=== PATIENT | female | born 1960 | race Caucasian/White ===

== ENCOUNTER 2021-07-18 17:21 | Emergency (ER) | payer MEDICARE, SELFPAY ==
[2021-07-18 17:34] VITALS: BP 125/73; PULSE 75; RESP 18; TEMP 36.4; O2SAT 95; BMI 33.3
--- NOTE | 2021-07-18 18:22 | ED_ITS ---
HPI - General Adult General: Chief complaint: General Medical Stated complaint: poor appetite; confusion Time Seen by Provider: 07/18/21 18:21 Source: patient and family Mode of arrival: EMS Limitations: altered mental status History of Present Illness: This patient was transported to the emergency depa rtment from a local assisted living facility. History was obtained from facility records, the patient as well as Mrs. Campos who is her DURABLE [employer]OWER [employer] via telephone. History is that the patient became positive for COVID- 19 approximately 4 days ago. Since that time the report is that she has been confused, decreased appetite decreased intake. There is no history of trauma, low blood sugars etc. She is unable to share any specifics about her past medical history but denies any complaints at this time. Allegedly she has a history of hypertension. She has never been at this facility and there are no records from our electronic medical record. Associated symptoms: Reports confusion, decreased appetite and vomiting; Deny chest pain, dyspnea, headache(s), rash or palpitations Review of Systems Const: Denies: fever(s), chills or body aches Eyes: Denies: change in vision ENMT: Denies: throat pain or odynophagia Card: Denies: chest pain or palpitations Resp: Denies: dyspnea, productive cough or non-productive cough GI: Reports: vomiting; Denies: abdominal pain, hematemesis, diarrhea or hematochezia : Denies: flank pain, difficulty voiding or dysuria Musc: Denies: neck pain, back pain, extremity pain or extremity swelling Skin/Breast: Denies: rash Neuro: Reports: confusion; Denies: headache(s), numbness in extremities, weakness in extremities or Slurred speech present Charli/Lymph: Denies: easy bruising or easy bleeding Physical Exam Narrative: EXAM NARRATIVE: The patient is alert and interactive is pleasantly confused and unable to answer any detailed questions about current events, her past medical history etc. She is able to tell me that she was born in this area moved to [place] but cannot recall the city that she lived in [place]. She is able to identify her friend Mrs. Campos who is her DURABLE [employer]OWER [employer]. She is not aware of the current date or time of the year. Const: COMMON NORMALS: no acute distress, average body habitus, no limitations, healthy appearing and alert GENERAL APPEARANCE: cooperative and well developed ORIENTATION/CONSCIOUSNESS: Yes oriented to person and Yes oriented to place HENMT: COMMON NORMALS: normocephalic, atraumatic, Normal nasal mucous membranes and turbinates present, moist oral mucous membranes and oropharynx normal HEAD & SCALP: normocephalic and atraumatic; no scalp tenderness and no Temporal artery tenderness present FACE & SINUS: normal facial exam NOSE: Normal nasal mucous membranes and turbinates present Eye: COMMON NORMALS: Equal, round and reactive pupils present, EOMs intact bilaterally and conjunctivae normal CONJUNCTIVA: Yes conjunctivae normal PUPIL: Yes Equal, round and reactive pupils present Neck/C-Spine: COMMON NORMALS: full ROM, no lymphadenopathy, supple, no meningeal signs, Thyroid normal and No carotid bruits THYROID: Thyroid normal Lymph: LYMPHATIC: no lymphadenopathy noted Chest: COMMONS NORMALS: normal inspection of the chest and normal palpation of entire chest wall Resp: COMMON NORMALS: normal respiratory effort, No retractions, No use of accessory muscles and clear to auscultation bilaterally AUSCULTATION: clear to auscultation bilaterally Cardio: COMMON NORMALS: regular rate, regular rhythm, No murmurs present (Cardio), No rub (Cardio) and Peripheral pulses 2+ throughout RATE: regular rate RHYTHM: regular rhythm PERIPHERAL PULSES: Peripheral pulses 2+ throughout GI: COMMON NORMALS: Normal to inspection, nondistended, normoactive bowel sounds present, Soft to palpation, non-tender and No hepatosplenomegaly present PALPATION: Yes Soft to palpation and Yes No hepatosplenomegaly present : COMMON NORMALS: Yes no CVA tenderness BLADDER/KIDNEY EXAM: Yes no CVA tenderness Back/Pelvis: COMMON NORMALS: no CVA tenderness, thoracic and lumbar spine normal to inspection, no thoracic nor lumbar tenderness and thoraco-lumbar ROM normal Extremity: COMMON NORMALS: normal to inspection, full ROM, capillary refill normal and no calf tenderness Neuro: COMMON NORMALS: moves all extremities, no focal motor deficits, no sensory deficits noted and deep tendon reflexes 2+ bilaterally SENSORIUM/ORIENTATION: Yes alert, Yes oriented to person and Yes oriented to place MENINGEAL SIGNS: Yes no meningeal signs CRANIAL NERVES: Yes CN normal except as noted Psych: COMMON NORMALS: cooperative and speech normal SPEECH: Yes normal speech MEMORY/COGNITION: Yes memory grossly impaired Skin: COMMON NORMALS: no rashes or lesions noted, turgor normal, no jaundice and no petechiae GENERAL SKIN EXAM: no rashes or lesions noted and turgor normal Course Reevaluation(s): Reevaluation #1: The patient remained alert and cooperative. He was drinking fluids without difficulty. No other new or focal findings on reevaluation. Time: 22:08 Consultations: Consultation #1: I reviewed reviewed all her current findings with the hospitalist(Dr Rai) without any significant findings of concern he does not feel that or admission is supportive or warranted at this time. He recommends discharging her back to her normal care facility with close follow-up and return precautions. She has been given 2 g of Rocephin and she will have cultures pending. Time: 22:19 Vital Signs: Vital signs: Vital Signs Temperature 97.5 F L 07/18/21 17:34 Pulse Rate 76 07/18/21 20:02 Respiratory Rate 16 07/18/21 20:02 Blood Pressure 148/91 07/18/21 20:02 Pulse Oximetry 95 07/18/21 20:02 MDM - General Adult Medical Decision Making Patient comes to the emergency department with a history of mild confusion and decreased intake. She had an extensive evaluation at this facility to include c omplete clinical examination which showed mild confusion but no focal findings to suggest neurologic deficit etc. Her radiographic and other ancillary studies are essentially unremarkable other than she has a urinalysis which does show some mild findings suggestive of possible UTI. Consultation with hospitalist service was undertaken and they reviewed her current findings and did not find a compelling reason to keep her in the hospital given that she was able to return back to a monitored setting. Again no evidence to suggest acute NEGATIVE CUTTER infection, stroke, pneumonia or other concerning findings at this time. She does have a history of being COVID-positive over the past few days but is not hypoxic, etc. The plan will be to return her back to the long-term care facility for continued monitoring and return to this facility immediately should she not improve or have other concerning findings. Medical Records No old records this facility Lab Data I reviewed the patient's lab results. : 07/18/21 18:45 07/18/21 18:45 Radiology Impressions Chest X-Ray 07/18/21 18:48 IMPRESSION: No acute findings. Head CT 07/18/21 18:48 IMPRESSION: No acute intracranial abnormality. Laboratory Results WBC 4.2 10^3/uL (4.0-10.0) 07/18/21 18:45 RBC 4.79 10^6/uL (4.1-5.3) 07/18/21 18:45 Hgb 14.3 g/dL (11.5-15.3) 07/18/21 18:45 Hct 40.4 % (37.0-47.0) 07/18/21 18:45 MCV 84.3 fl (81-99) 07/18/21 18:45 MCH 29.9 pg (28.0-34.0) 07/18/21 18:45 MCHC 35.4 g/dL (30.0-36.0) 07/18/21 18:45 RDW 13.2 % (12.1-15.1) 07/18/21 18:45 Plt Count 222 10^3/cmm (130-400) 07/18/21 18:45 MPV 9.6 fL (7.4-10.4) 07/18/21 18:45 Neut % (Auto) 39.2 % 07/18/21 18:45 Lymph % (Auto) 47.3 % 07/18/21 18:45 Jennings % (Auto) 12.1 % 07/18/21 18:45 Eos % (Auto) 0.5 % 07/18/21 18:45 Baso % (Auto) 0.7 % 07/18/21 18:45 Neut # (Auto) 1.66 10^3/uL (1.8-7.7) L 07/18/21 18:45 Lymph # (Auto) 2.0 10^3/uL (0.8-4.8) 07/18/21 18:45 Jennings # (Auto) 0.5 10^3/uL (0.2-0.9) 07/18/21 18:45 Eos # (Auto) 0.0 10^3/uL (0.0-0.8) 07/18/21 18:45 Baso # (Auto) 0.0 10^3/uL (0.0-0.1) 07/18/21 18:45 Nucleated RBC % (auto) 0 % 07/18/21 18:45 Nucleated RBCs # 0.0 /100WBC 07/18/21 18:45 Specimen Type Arterial 07/18/21 19:52 Sample Site Radial, left 07/18/21 19:52 ABG pH 7.45 (7.35-7.45) 07/18/21 19:52 ABG pCO2 35.1 mmHg (35-45) 07/18/21 19:52 ABG pO2 67.6 mmHg (80.0-100.0) L 07/18/21 19:52 ABG HCO3 24.6 mmol/L (22-26) 07/18/21 19:52 ABG O2 Saturation 94.8 07/18/21 19:52 ABG Base Excess 1.0 mmol/L (-2.0-2.0) 07/18/21 19:52 Jose Test Pos 07/18/21 19:52 A-a O2 Gradient 4.9 mmHg (5-10) L 07/18/21 19:52 Hematocrit 43.7 % (37-47) 07/18/21 19:52 Hgb O2 Saturation 93.6 % (95-100) L 07/18/21 19:52 Carboxyhemoglobin 0.5 %THgb (0.4-20.1) 07/18/21 19:52 Methemoglobin 0.8 % (0.4-1.5) 07/18/21 19:52 Total Hemoglobin 14.2 g/dL (12-16) 07/18/21 19:52 Sodium 141.0 mmol/L (131-143) 07/18/21 19:52 Potassium 3.5 mmol/L (3.5-5.0) 07/18/21 19:52 Glucose 124.0 mg/dL (70-115) H 07/18/21 19:52 Ionized Calcium 1.1 mmol/L (1.1-1.4) 07/18/21 19:52 O2 Delivery Device Room air 07/18/21 19:52 Forms Examiner ID Buttr 07/18/21 19:52 Sodium 137 mmol/L (136-145) 07/18/21 18:45 Potassium 3.7 mmol/L (3.5-5.1) 07/18/21 18:45 Chloride 100 mmol/L (98-107) 07/18/21 18:45 Carbon Dioxide 23 mmol/L (22-29) 07/18/21 18:45 Anion Gap 17.7 (5-19) 07/18/21 18:45 BUN 12 mg/dL (8-23) 07/18/21 18:45 Creatinine 0.5 mg/dL (0.5-0.9) 07/18/21 18:45 GFR Calculation 125.0 mL/min (90-130) 07/18/21 18:45 Glucose 129 mg/dL (65-115) H 07/18/21 18:45 Calculated Osmolality 285 mOsm/kg (285-295) 07/18/21 18:45 Lactate 1.2 mmol/L (0.5-2.2) 07/18/21 18:45 Calcium 9.3 mg/dL (8.5-10.5) 07/18/21 18:45 Total Bilirubin 0.6 mg/dL (0.15-1.2) 07/18/21 18:45 AST 29 U/L (0-32) 07/18/21 18:45 ALT 28 U/L (0-33) 07/18/21 18:45 Alkaline Phosphatase 55 IU/L (35-105) 07/18/21 18:45 Total Protein 7.3 g/dL (6.6-8.7) 07/18/21 18:45 Albumin 4.7 g/dL (3.5-5.2) 07/18/21 18:45 Globulin 2.6 g/dL (1.3-4.6) 07/18/21 18:45 TSH 2.46 uIU/mL (0.27-4.20) 07/18/21 18:45 Urine Color Yellow (Yellow) 07/18/21 20:55 Urine Appearance Clear (CLEAR) 07/18/21 20:55 Urine pH 5 (5-7) 07/18/21 20:55 Ur Specific [place] 1.025 (1.005-1.030) 07/18/21 20:55 Urine Protein Neg (Negative) 07/18/21 20:55 Urine Glucose (UA) Norm (Normal) 07/18/21 20:55 Urine Ketones 2+ (Negative) H 07/18/21 20:55 Urine Blood Neg (Negative) 07/18/21 20:55 Urine Nitrate Negative (Negative) 07/18/21 20:55 Urine Bilirubin 1+ (Negative) H 07/18/21 20:55 Urine Urobilinogen 1 mg/dL (Negative) H 07/18/21 20:55 Ur Leukocyte Esterase Trace (Negative) H 07/18/21 20:55 Urine RBC 0-4 /hpf (0-2) H 07/18/21 20:55 Urine WBC 10-15 /hpf (0-5) H 07/18/21 20:55 Ur Squamous Epith Cells 15-25 /hpf (0-5) H 07/18/21 20:55 Calcium Oxalate Crystal 0-4 /hpf H 07/18/21 20:55 Amorphous Sediment Not Reportable 07/18/21 20:55 Urine Bacteria 2+ /hpf (NONE) H 07/18/21 20:55 Urine Mucus 1+ /hpf 07/18/21 20:55 EKG Data EKG 1: EKG interpretation time: 19:01 Interpretation: Review of the EKG reveals a ventricular rate of 77 bpm consistent with sinus rhythm. She has some baseline irritability in the limb leads. Normal intervals and normal axis otherwise. No acute ST-T wave changes noted at this time. Computer generated interpretation: Chest X-Ray 07/18/21 18:48 IMPRESSION: No acute findings. Head CT 07/18/21 18:48 IMPRESSION: No acute intracranial abnormality. Discharge Plan Discharge Patient Disposition: Home Clinical Impression: Confusion, UTI (urinary tract infection) Condition: Stable Prescriptions: New cephalexin 500 mg capsule 500 mg PO TID 7 Days Qty: 21 0RF Discharge Orders: Discharge ED (Routine); Ordered 07/18/21 Ordered By: Ankit Bustillos Discharge Diet: Usual diet Discharge Activity: Resume usual activity Patient Instructions: Opioid Safety Activity Restrictions/Additional Instructions: She is to continue all her usual medications. She is also to continue to take the antibiotics that we have prescribed. If she does not continue to improve or she has any progressive or worsening symptoms at any time she should be return to the emergency department immediately for reevaluation and assessment. Coding Level of Care Code ED Wildlife Science Professor for Jaspal Gastelum Exam Comprehensive
--- NOTE | 2021-07-18 18:48 | XRR_ITS ---
PROCEDURE INFORMATION: Exam: XR Chest Exam date and time: 07/18/2021 7:21 PM Age: 61 years old Clinical indication: Chest wall pain; Additional info: Confusion TECHNIQUE: Imaging protocol: XR of the chest. Views: 1 view. COMPARISON: No relevant prior studies available. FINDINGS: Lungs: Several left lung calcified granulomas. Pleural spaces: Unremarkable. No pleural effusion. No pneumothorax. Heart/Mediastinum: Unremarkable. No cardiomegaly. Bones/joints: Unremarkable. XR/XR chest 1V portable [id number] IMPRESSION: No acute findings.
--- NOTE | 2021-07-18 18:48 | CTR_ITS ---
PROCEDURE INFORMATION: Exam: CT Head Without Contrast Exam date and time: 07/18/2021 8:11 PM Age: 61 years old Clinical indication: Other: Confusion; Patient HX: Covid positive PT gradually getting more confused TECHNIQUE: Imaging protocol: Computed tomography of the head without contrast. Radiation optimization: All CT scans at this facility use at least one of these dose optimization techniques: automated exposure control; mA and/or kV adjustment per patient size (includes targeted exams where dose is matched to clinical indication); or iterative reconstruction. COMPARISON: No relevant prior studies available. RADIATION DOSE METRICS: Total DLP (mGy-cm): 978.2 FINDINGS: Brain: Normal. No hemorrhage. Unremarkable white matter. No mass effect. Cerebral ventricles: No ventriculomegaly. Paranasal sinuses: Visualized sinuses are unremarkable. No fluid levels. Mastoid air cells: Visualized mastoid air cells are well aerated. Bones/joints: Unremarkable. No acute fracture. Soft tissues: Unremarkable. CT/CT head wo con* [id number] IMPRESSION: No acute intracranial abnormality.
--- NOTE | 2021-07-18 18:49 | ECG_ITS ---
[facility] Test Date: 2021-07-18 Pat Name: Paola Stanton Department: Room: Gender: Female Dietary Cook: : 1960 Requested By: Ankit Bustillos Order Number: [id number] Huseyin MD: Alexis Candelaria M.D. Measurements Intervals Quinter Rate: 77 P: 38 UT: 138 QRS: 4 QRSD: 81 T: 27 QT: 376 QTc: 427 Interpretive Statements SINUS RHYTHM POSSIBLE ANTERIOR MYOCARDIAL INFARCTION , PROBABLY OLD [30 ms Q WAVE IN V3/V4, OR R < 0.2 mV IN V4] No previous ECG available for comparison Electronically Signed On 07-19-2021 0:28:47 CDT by Alexis Candelaria M.D. [email or web address]
[2021-07-18 18:56] LABS: Basophils % 0.7 %; Eosinophils % 0.5 %; Hematocrit 40.4 % (37.0-47.0); Hemoglobin 14.3 g/dL (11.5-15.3); Lymphocytes % 47.3 %; Mean Corpuscular HGB Conc 35.4 g/dL (30.0-36.0); Mean Corpuscular Hemoglobin 29.9 pg (28.0-34.0); Mean Corpuscular Volume 84.3 fl (81-99); Mean Platelet Volume 9.6 fL (7.4-10.4); Monocytes # 0.5 10^3/uL (0.2-0.9); Monocytes % 12.1 %; Neutrophils # 1.66 10^3/uL (1.8-7.7); Neutrophils % 39.2 %; Nucleated Red Blood Cells % 0 %; Platelet Count 222 10^3/cmm (130-400); Red Blood Count 4.79 10^6/uL (4.1-5.3); Red Cell Distribution Width 13.2 % (12.1-15.1); White Blood Count 4.2 10^3/uL (4.0-10.0)
[2021-07-18 19:17] VITALS: BP 98/57; PULSE 77; RESP 19; O2SAT 90
[2021-07-18 19:17] LABS: Lactate (Lactic Acid level) 1.2 mmol/L (0.5-2.2)
[2021-07-18 19:23] LABS: Alanine Aminotransferase 28 U/L (0-33); Albumin Level 4.7 g/dL (3.5-5.2); Alkaline Phosphatase 55 IU/L (35-105); Anion Gap 17.7 (5-19); Aspartate Amino Transferase 29 U/L (0-32); Blood Urea Nitrogen 12 mg/dL (8-23); Calcium 9.3 mg/dL (8.5-10.5); Carbon Dioxide 23 mmol/L (22-29); Chloride 100 mmol/L (98-107); Globulin 2.6 g/dL (1.3-4.6); Glucose 129 mg/dL (65-115); Osmolality Calculated 285 mOsm/kg (285-295); Potassium 3.7 mmol/L (3.5-5.1); Sodium 137 mmol/L (136-145); Thyroid Stimulating Hormone 2.46 uIU/mL (0.27-4.20); Total Bilirubin 0.6 mg/dL (0.15-1.2); Total Protein 7.3 g/dL (6.6-8.7)
[2021-07-18] MEDS: sodium chloride 0.9% 1,000 ML 999 ML IV (19:56)
[2021-07-18 20:02] VITALS: BP 148/91; PULSE 76; RESP 16; O2SAT 95
[2021-07-18 20:03] LABS: ABG PCO2 35.1 mmHg (35-45); ABG PH Result 7.45 (7.35-7.45); Alveolar-Arterial Oxygen Gradi 4.9 mmHg (5-10); Arterial Blood Gas Hematocrit 43.7 % (37-47); Blood Gas Allen Test Pos; Blood Gas Sample Site Radial, left; Blood Gas Sample Type Arterial; Carboxyhemoglobin 0.5 %THgb (0.4-20.1); HCO3 ABG 24.6 mmol/L (22-26); HGB O2 Sat 93.6 % (95-100); Ionized Calcium Level - ABG 1.1 mmol/L (1.1-1.4); Methemoglobin 0.8 % (0.4-1.5); Oxygen Device ROOM AIR; Oxygen Saturation ABG 94.8; PO2 ABG 67.6 mmHg (80.0-100.0); Potassium Level - ABG 3.5 mmol/L (3.5-5.0); Total Hemoglobin 14.2 g/dL (12-16)
[2021-07-18 21:41] LABS: Adenovirus Not Detected (NOT DETECT); Chlamydia Pneumoniae Not Detected (NOT DETECT); Coronavirus 229E,HKU1,NL63,OC4 Not Detected (NOT DETECT); Human Metapneumovirus Not Detected (NOT DETECT); Human Rhinovirus/Enterovirus Not Detected (NOT DETECT); Influenza A Not Detected (NOT DETECT); Influenza A H1 Not Detected (NOT DETECT); Influenza A H1-2009 Not Detected (NOT DETECT); Influenza A H3 Not Detected (NOT DETECT); Influenza B Not Detected (NOT DETECT); Mycoplasma Pneumoniae Not Detected (NOT DETECT); Parainfluenza Virus Type 1 Not Detected (NOT DETECT); Parainfluenza Virus Type 2 Not Detected (NOT DETECT); Parainfluenza Virus Type 3 Not Detected (NOT DETECT); Parainfluenza Virus Type 4 Not Detected (NOT DETECT); Respiratory Syncytial Virus A Not Detected (NOT DETECT); Respiratory Syncytial Virus B Not Detected (NOT DETECT); SARS-COV-2 Detected (NOT DETECT)
[2021-07-18 21:43] LABS: Add Urine Microscopic? YES; Bilirubin Urine 1+ (Negative); Blood Urine Neg (Negative); Glucose Urine UA Norm (Normal); Ketones Urine 2+ (Negative); Leukocyte Esterase Urine Trace (Negative); Nitrate Urine Negative (Negative); Protein Urine Neg (Negative); Specific Gravity, Urine 1.025 (1.005-1.030); Urine Appearance Clear (CLEAR); Urine Color Yellow (Yellow); Urobilinogen Urine 1 mg/dL (Negative); pH Urine 5 (5-7)
[2021-07-18 21:44] LABS: Bacteria Urine 2+ /hpf; Mucus Urine 1+ /hpf; RBC Urine 0-4 /hpf (0-2); Squamous Epithelial Cell Urine 15-25 /hpf (0-5)
[2021-07-18 21:45] LABS: Add Urine Culture? No; Calcium Oxalate Crystals Urine 0-4 /hpf
[2021-07-18 22:33] LABS: C Reactive Protein 5.2 mg/L (0.0-4.9)
[2021-07-18 22:40] VITALS: BP 144/89; PULSE 75; RESP 14; O2SAT 97
[2021-07-18] MEDS: cefTRIAXone 2,000 MG in sodium chloride 0.9% (plus) 50 ML 100 MG IV (22:51)
[2021-07-18 23:41] LABS: Ferritin 935 ng/mL (15-150)
[2021-07-18 23:43] VITALS: BP 125/86; PULSE 74; RESP 18; O2SAT 97
[2021-07-19 00:30] VITALS: BP 121/93; PULSE 77; RESP 14; O2SAT 96
[2021-07-19 00:47] VITALS: BP 121/93; PULSE 77; RESP 14; O2SAT 96
== END 2021-07-19 00:42 | disposition home or self-care (01) ==
PROVIDERS: Emergency Provider Emergency Medicine; PCP Family Medicine
DX: N39.0 Urinary tract infection, site not specified (principal); R41.0 Disorientation, unspecified; R11.10 Vomiting, unspecified; U07.1 COVID-19
CPT/HCPCS: 36415; 36600; 70450; 71045; 80051; 80053; 81001; 82330; 82728; 82805; 83605; 84443; 85025; 86140; 87040; 87635; 93005; 96365; 99284; J0696; J7030